=== PATIENT | male | born 1945 | race Caucasian/White ===

== ENCOUNTER 2025-07-16 09:34 | Emergency (ER) | payer BC, OTHER ==
[2025-07-16] MEDS ORDERED: NA CHLORIDE 0.9% 500 ML ONE (10:00)
[2025-07-16 10:20] LABS: Absolute Lymphocytes (CBC) 0.3 K/uL (0.7-4.9); Hematocrit 47.5 % (39.6-49.0); Hemoglobin 15.7 g/dL (13.6-17.9); MCH 29.9 pg (27.0-35.0); MCHC 33.1 g/dL (32.0-36.0); MCV 90.3 fL (80-100); MPV 9.5 fL (7.6-11.3); Nucleated RBC Absolute Count 0.0 (0-0); Nucleated Red Blood Cells % 0.1 % (0-0); RBC Red Blood Cell Count 5.26 M/uL (4.33-5.43); White Blood Count 12.40 thou/uL (4.3-10.9)
[2025-07-16 10:32] LABS: PT Prothrombin Time 12.8 SECONDS (10-13.0); Protime INR 1.14
[2025-07-16] MEDS ORDERED: ASPIRIN 81 MG CHEWABLE TABLET ONE (10:36)
[2025-07-16 10:37] LABS: Sqamous Epithelial None Seen /HPF (None Seen); Urine Culture Reflex Order NOT NEEDED; Urine Microscopic Reflex YN ORDER UMIC; Urine Yeast (Budding) Trace /HPF (None Seen)
[2025-07-16 10:53] LABS: ALT/SGPT 41.0 U/L (16-61); AST/SGOT 17.0 U/L (15-37); Albumin 3.4 g/dL (3.4-5.0); Albumin/Globulin Ratio 0.9 (1.1-1.8); Alkaline Phosphatase 98.0 U/L (45-117); Anion Gap 10.4 mEq/L (5.0-15.0); BUN Blood Urea Nitrogen 19.0 mg/dL (7-18); Bilirubin Indirect, Calculated 1.0 mg/dL (0.2-0.8); Globulin 3.8 g/dL (2.3-3.5); Glucose Level 152.0 mg/dL (74-106); Lipase 12.0 U/L (13-75); Magnesium 1.7 mg/dL (1.6-2.4); NT PRO-BNP 10281.0 pg/mL (<450); Potassium 4.4 mEq/L (3.5-5.1)
[2025-07-16 10:56] LABS: Troponin High Sensitivity 88.4 pg/mL (<58.9)
[2025-07-16] MEDS ORDERED: ENOXAPARIN 100 MG/ML SYR SQ ONE (11:08)
[2025-07-16] MEDS ORDERED: FAMOTIDINE 20 MG/2 ML VIAL IV ONE (11:08)
[2025-07-16] MEDS ORDERED: FUROSEMIDE 40 MG/4 ML VIAL ONE (11:08)
--- NOTE | 2025-07-16 11:09 | RAD REPORT ---
Procedure: Chest Single View HISTORY: Cough COMPARISON: none FINDINGS: The lungs appear clear of acute infiltrate.. Upper lobe vessels are prominent indicative of pulmonary venous hypertension. No significant pleural effusion noted. The heart is mildly enlarged.
--- NOTE | 2025-07-16 11:10 | ER ---
Nurse's Notes [facility] [place] Name: Dex Jones Age: 80 yrs Sex: Male : 1945 Arrival Date: 07/16/2025 Time: 09:34 Bed 2 Private MD: Diagnosis: Chronic combined systolic (congestive) and diastolic (congestive) heart failure;Non ST elevation [place];Dyspnea Presentation: 07/16 09:45 Chief complaint: Patient states: Reports he was sent from the [place] clinic with an kb3 abnormal EKG. Denies CP. States ongoing, intermittent SOB x1 year. Worse last night. Denies cough, congestion, fever. Denies extremity swelling. 09:45 Method Of Arrival: Ambulatory kb3 09:45 Coronavirus screen: Vaccine status: Patient reports receiving the 2nd dose of the covid kb3 vaccine. Client denies travel out of the [place] in the last 14 days. Ebola Screen: Patient negative for fever greater than or equal to 101.5 degrees Fahrenheit, and additional compatible Ebola Virus Disease symptoms Patient denies exposure to infectious person. Patient denies travel to an Ebola-affected area in the 21 days before illness onset. Initial Sepsis Screen: Does the patient meet any 2 criteria? No. Patient's initial sepsis screen is negative. Does the patient have a suspected source of infection? No. Patient's initial sepsis screen is negative. Risk Assessment: Do you want to hurt yourself or someone else? Patient reports no desire to harm self or others. Onset of symptoms is unknown. 09:45 Acuity: MI 2 kb3 Triage Assessment: 09:45 General: Appears in no apparent distress. comfortable, Behavior is calm, cooperative. kb3 09:45 Pain: Denies pain. Respiratory: Airway is patent Trachea midline Respiratory effort is kb3 even, unlabored, Respiratory pattern is regular, symmetrical, Breath sounds are clear Breath sounds are diminished bilaterally. Historical: - Allergies: 10:28 No Known Allergies; kb3 - Home Meds: 10:28 carvedilol oral 1 tab daily [Active]; losartan oral 1 tab daily [Active]; amlodipine kb3 oral 1 tab daily [Active]; - PMHx: 10:28 Hypertensive disorder; "heart valve problem"; kb3 - PSHx: 10:28 None; kb3 - Immunization history:: Adult Immunizations up to date, Client reports receiving the 2nd dose of the Covid vaccine. - Infectious Disease History:: Denies. - Social history:: Smoking status: Patient denies any tobacco usage or history of. - Family history:: not pertinent. Screenin:32 [facility] ED Fall Risk Assessment (Adult) History of falling in the last 3 months, kb3 including since admission No falls in past 3 months (0 pts) Confusion or Disorientation No (0 pts) Intoxicated or Sedated No (0 pts) Impaired Gait No (0 pts) Mobility Assist Device Used No (0 pt) Altered Elimination No (0 pt) Score/Fall Risk Level 0 - 2 = Low Risk Oriented to surroundings. Abuse screen: Denies threats or abuse. Denies injuries from another. Nutritional screening: No deficits noted. Tuberculosis screening: No symptoms or risk factors identified. Assessment: 10:32 Reassessment: Patient appears in no apparent distress at this time. No changes from kb3 previously documented assessment. Patient and/or family updated on plan of care and expected duration. Pain level reassessed. General: Appears in no apparent distress. Behavior is calm, cooperative. Pain: Denies pain. Neuro: Level of Consciousness is awake, alert, obeys commands, Oriented to person, place, time, situation, Wing Scorer are equal bilaterally Moves all extremities. Gait is steady, Speech is normal, Facial symmetry appears normal. Cardiovascular: Rhythm is sinus rhythm with PACs with unifocal PVCs. Respiratory: Reports shortness of breath at rest on exertion. 11:10 General: Pt resting comfortably. Updated regarding pending transfer to [place]. All kb3 questions asked/answered. . 11:10 Pain: Denies pain. kb3 11:18 Reassessment: Patient appears in no apparent distress at this time. No changes from kb3 previously documented assessment. Patient and/or family updated on plan of care and expected duration. Pain level reassessed. Patient is alert, oriented x 3, equal unlabored respirations, skin warm/dry/pink. Patient denies pain at this time. Cardiovascular: Rhythm is sinus rhythm. 12:43 Reassessment: No changes from previously documented assessment. Patient is alert, kb4 oriented x 3, equal unlabored respirations, skin warm/dry/pink. General: Pt standing to void without difficulty. . Vital Signs: 09:45 BP 149 / 96; Pulse 76; Resp 20; Temp 98; Pulse Ox 94% ; Weight 127.01 kg; Height 6 ft. kb3 3 in. ; Pain 0/10; 11:00 BP 156 / 111; Pulse 76; Resp 20; Pulse Ox 96% ; me1 12:00 BP 170 / 132; Pulse 90; Resp 19; Pulse Ox 94% ; me1 12:42 BP 159 / 121; Pulse 79; Resp 20; Pulse Ox 95% ; Pain 0/10; kb4 09:45 Body Mass Index 35.00 (127.01 kg, 190.5 cm) kb3 09:45 Pain Scale: Adult kb3 12:42 Pain Scale: Adult kb4 ED Course: 09:38 Patient arrived in ED. cj3 09:45 Arm band placed on right wrist. Patient placed in an exam room, on a stretcher. EKG kb3 completed in triage. Results shown to MD. EKG completed in triage. Results shown to MD. Antipyretics given from triage as ordered by an ER provider. 09:47 Anthony Magallanes MD is Attending Physician. [facility] 10:00 Pricila Delgadillo, AUTUMN is Primary Nurse. me1 10:05 Inserted saline lock: 20 gauge in right antecubital area, using aseptic technique. kb3 10:05 No provider procedures requiring assistance completed. kb3 10:13 Basic Metabolic Panel Sent. kb3 10:13 CBC with Diff Sent. kb3 10:13 LFT's Sent. kb3 10:13 Magnesium Sent. kb3 10:13 NT PRO-BNP Sent. kb3 10:13 PT-INR Sent. kb3 10:13 Troponin HS Sent. kb3 10:14 Patient has correct armband on for positive identification. Placed in gown. Bed in low kb3 position. Provided Education on: POC. 10:28 Triage completed. kb3 10:35 UA Rfx Godfrey Cult if indicated Sent. kb3 10:44 XRAY Chest (1 view) In Process Unspecified. EDMS 11:22 initiated a transfer with Neftali from the [place] transfer center. eb 11:57 connected the ED physician public administration professor for the [place] with Dr. Magallanes for patient transfer eb consultation. 11:59 administrative approval given by the [place] transfer center/ Dr. Gerald Wilkes has eb accepted the patient in transfer/ report to be called to [phone]. 12:42 Consent to transfer signed. All questions asked/answered. kb4 13:03 Patient transferred, IV remains in place. me1 Administered Medications: 10:58 Discontinued: ns 0.9% 500 ml 500 ml IV at 1 bolus once; to be given as a bolus over 30 panchito minutes 10:13 Drug: NS 0.9% IV 500 ml 500 ml IV at 1 bolus once; to be given as a bolus over 30 kb3 minutes Volume: 500 ml; Route: IV; Rate: 1 bolus; Site: right antecubital; 11:16 Follow up: IV Status: Order to discontinue infusion; IV Intake: 100ml kb3 10:35 Drug: Aspirin PO Chewable Tablet 81 mg PO once Route: PO; kb3 11:05 Follow up: Response: No adverse reaction kb3 11:15 Drug: Famotidine IVP 20 mg IVP once; dilute with 10 mL 0.9% NaCl; give over 2 minutes kb3 Route: IVP; Site: right antecubital; 11:16 Follow up: Response: No adverse reaction kb3 11:16 Drug: Furosemide IVP 40 mg IVP once; give over 2 minutes Route: IVP; Site: right kb3 antecubital; 11:17 Follow up: Response: No adverse reaction kb3 11:16 Drug: Enoxaparin Sub-Q 100 mg Sub-Q once Route: Sub-Q; Site: right lower abdomen; kb3 11:17 Follow up: Response: No adverse reaction kb3 12:51 Drug: Labetalol IV 20 mg IV at per protocol once over 2 mins Route: IV; Rate: per me1 protocol; Infused Over: 2 mins; Site: right antecubital; 13:04 Follow up: Response: No adverse reaction; IV Status: Completed infusion me1 12:51 Drug: Labetalol PO 100 mg PO once Route: PO; me1 13:04 Follow up: Response: No adverse reaction me1 Medication: 10:32 VIS not applicable for this client. kb3 Intake: 11:16 IV: 100ml; Total: 100ml. kb3 12:43 PO: 150ml; Total: 250ml. kb4 Output: 12:43 Urine: 2000ml (Voided); Total: 2000ml. kb4 Outcome: 11:10 ER care complete, transfer ordered by . [facility] 13:03 Transferred by ground EMS to [facility] Note: report called by me1 Daylin Hinton RN 13:03 Condition: stable 13:03 Instructed on the need for transfer, 13:04 Patient left the ED. me1 Signatures: Dispatcher [employer] EDAnthony Kebede MD MD cha Botello, Elizabeth eb Bradberry, Kelly, RN RN kb3 Pricila Delgadillo RN RN me1 Ira Montalvo RN RN kb4 Loretta Navarrete 3
--- NOTE | 2025-07-16 11:10 | EDPHYS ---
Physician Documentation [facility] Name: Dex Jones Age: 80 yrs Sex: Male : 1945 Arrival Date: 07/16/2025 Time: 09:34 Bed 2 Private MD: ED Physician Anthony Magallanes HPI: 07/16 11:04 This 80 yrs old Male presents to ER via Ambulatory with complaints of panchito Abnormal EKG. 11:04 The patient has shortness of breath at rest, with light activity, that woke him/her panchito from sleep. Onset: The symptoms/episode began/occurred 5 day(s) ago. Duration: The symptoms are continuous, and are steadily getting worse. The patient's shortness of breath is aggravated by exertion, supine position, is alleviated by rest, sitting up, application of supplemental oxygen. Associated signs and symptoms: Pertinent positives: non-productive cough. Severity of symptoms: At their worst the symptoms were mild this morning, in the emergency department the symptoms are unchanged. The patient has experienced similar episodes in the past, multiple times. Historical: - Allergies: 10:28 No Known Allergies; kb3 - Home Meds: 10:28 carvedilol oral 1 tab daily [Active]; losartan oral 1 tab daily [Active]; amlodipine kb3 oral 1 tab daily [Active]; - PMHx: 10:28 Hypertensive disorder; "heart valve problem"; kb3 - PSHx: 10:28 None; kb3 - Immunization history:: Adult Immunizations up to date, Client reports receiving the 2nd dose of the Covid vaccine. - Infectious Disease History:: Denies. - Social history:: Smoking status: Patient denies any tobacco usage or history of. - Family history:: not pertinent. ROS: 11:04 Constitutional: Negative for fever, chills, and weight loss, Eyes: Negative for injury, panchito pain, redness, and discharge, ENT: Negative for injury, pain, and discharge, Neck: Negative for injury, pain, and swelling, Cardiovascular: Negative for chest pain, palpitations, and edema, Abdomen/GI: Negative for abdominal pain, nausea, vomiting, diarrhea, and constipation, Back: Negative for injury and pain, : Negative for injury, bleeding, discharge, and swelling, MS/Extremity: Negative for injury and deformity, Skin: Negative for injury, rash, and discoloration, Neuro: Negative for headache, weakness, numbness, tingling, and seizure, Psych: Negative for depression, anxiety, suicide ideation, homicidal ideation, and hallucinations, Allergy/Immunology: Negative for hives, rash, and allergies, Endocrine: Negative for neck swelling, polydipsia, polyuria, polyphagia, and marked weight changes, Hematologic/Lymphatic: Negative for swollen nodes, abnormal bleeding, and unusual bruising, 11:04 Respiratory: Positive for cough, shortness of breath, on exertion. 11:04 MS/extremity: Negative for acute changes, Exam: 11:04 Constitutional: This is a well developed, well nourished patient who is awake, alert, panchito and in no acute distress. Head/Face: Normocephalic, atraumatic. Eyes: Pupils equal round and reactive to light, extra-ocular motions intact. Lids and lashes normal. Conjunctiva and sclera are non-icteric and not injected. Cornea within normal limits. Periorbital areas with no swelling, redness, or edema. ENT: Nares patent. No nasal discharge, no septal abnormalities noted. Tympanic membranes are normal and external auditory canals are clear. Oropharynx with no redness, swelling, or masses, exudates, or evidence of obstruction, uvula midline. Mucous membranes moist. Neck: Trachea midline, no thyromegaly or masses palpated, and no cervical lymphadenopathy. Supple, full range of motion without nuchal rigidity, or vertebral point tenderness. No Meningismus. Chest/axilla: Normal chest wall appearance and motion. Nontender with no deformity. No lesions are appreciated. Cardiovascular: Regular rate and rhythm with a normal S1 and S2. No gallops, murmurs, or rubs. Normal PMI, no JVD. No pulse deficits. Respiratory: Lungs have equal breath sounds bilaterally, clear to auscultation and percussion. No rales, rhonchi or wheezes noted. No increased work of breathing, no retractions or nasal flaring. Abdomen/GI: Soft, non-tender, with normal bowel sounds. No distension or tympany. No guarding or rebound. No evidence of tenderness throughout. Back: No spinal tenderness. No costovertebral tenderness. Full range of motion. Male : Normal genitalia with no discharge or lesions. Skin: Warm, dry with normal turgor. Normal color with no rashes, no lesions, and no evidence of cellulitis. MS/ Extremity: Pulses equal, no cyanosis. Neurovascular intact. Full, normal range of motion., bilateral aka Neuro: Awake and alert, GCS 15, oriented to person, place, time, and situation. Cranial nerves II-XII grossly intact. Motor strength 5/5 in all extremities. Sensory grossly intact. Cerebellar exam normal. Normal gait. Psych: Awake, alert, with orientation to person, place and time. Behavior, mood, and affect are within normal limits. 11:04 ECG was reviewed by the Attending Physician. 11:04 Musculoskeletal/extremity: DVT Exam: No signs of deep vein thrombosis. no pain, no swelling, no tenderness, negative Homans' sign noted on exam, no appreciated bluish discoloration, no erythema, no increased warmth, Vital Signs: 09:45 BP 149 / 96; Pulse 76; Resp 20; Temp 98; Pulse Ox 94% ; Weight 127.01 kg; Height 6 ft. kb3 3 in. ; Pain 0/10; 11:00 BP 156 / 111; Pulse 76; Resp 20; Pulse Ox 96% ; me1 12:00 BP 170 / 132; Pulse 90; Resp 19; Pulse Ox 94% ; me1 12:42 BP 159 / 121; Pulse 79; Resp 20; Pulse Ox 95% ; Pain 0/10; kb4 09:45 Body Mass Index 35.00 (127.01 kg, 190.5 cm) kb3 09:45 Pain Scale: Adult kb3 12:42 Pain Scale: Adult kb4 MDM: 09:47 Medical Screening Exam initiated panchito 11:07 Differential diagnosis: Anemia Anxiety Reaction asthma, Bronchitis CHF exacerbation, panchito Chronic Obstructive Pulmonary Disease Myocardial Infarction pneumonia, pulmonary edema, Pulmonary Embolism reactive airway disease, Sepsis Unstable Angina. Antibiotic administration: Not indicated. Immunization status: Pneumococcal vaccine: within last 5 years. Influenza vaccine: within last 5 years. Data reviewed: vital signs, nurses notes, lab test result(s), EKG, radiologic studies, plain films. Consideration of Admission/Observation Patient was admitted/placed on observation. Escalation of care including admission/observation considered. I considered the following discharge prescriptions or medication management in the emergency department Medications were administered in the Emergency Department. See MAR. Independent interpretation of the following test(s) in the Emergency Department EKG: See my EKG interpretation above. Test considered but Not performed: CT: NO CT CHEST. Historians other than the Patient: PT WELL INFORMED. Care significantly affected by the following chronic conditions: Hypertension, VALVE ISSUSES. 07/16 09:47 Order name: Basic Metabolic Panel; Complete Time: 10:57 panchito 07/16 09:47 Order name: CBC with Diff; Complete Time: 11:57 panchito 07/16 09:47 Order name: LFT's; Complete Time: 10:57 panchito 07/16 09:47 Order name: Magnesium; Complete Time: 10:57 panchito 07/16 09:47 Order name: NT PRO-BNP; Complete Time: 10:57 [facility] 07/16 09:47 Order name: PT-INR; Complete Time: 10:56 panchito 07/16 09:47 Order name: Troponin HS; Complete Time: 10:57 panchito 07/16 09:47 Order name: UA Rfx Godfrey Cult if indicated; Complete Time: 10:56 [facility] 07/16 09:47 Order name: Lipase; Complete Time: 10:57 [facility] 07/16 10:25 Order name: CBC Smear Scan; Complete Time: 11:57 EDMS 07/16 09:47 Order name: XRAY Chest (1 view); Complete Time: 11:57 [facility] 07/16 09:47 Order name: Cardiac monitoring; Complete Time: 10:13 [facility] 07/16 09:47 Order name: EKG - Nurse/Tech; Complete Time: 10:13 [facility] 07/16 09:47 Order name: IV Saline Lock; Complete Time: 10:13 [facility] 07/16 09:47 Order name: Labs collected and sent; Complete Time: 10:13 [facility] 07/16 09:47 Order name: O2 Per Protocol; Complete Time: 12:05 [facility] 07/16 09:47 Order name: O2 Sat Monitoring; Complete Time: 10:13 [facility] EC:04 Rate is 77 beats/min. Rhythm is regular. QRS [place] is Normal. [place] interval is normal. QRS panchito interval is normal. QT interval is normal. No Q waves. T waves are Normal. No ST changes noted. Clinical impression: NSR w/ Non-specific ST/T Changes and No evidence of ischemia. Interpreted by me. Reviewed by me. Administered Medications: 10:58 Discontinued: ns 0.9% 500 ml 500 ml IV at 1 bolus once; to be given as a bolus over 30 panchito minutes 10:13 Drug: NS 0.9% IV 500 ml 500 ml IV at 1 bolus once; to be given as a bolus over 30 kb3 minutes Volume: 500 ml; Route: IV; Rate: 1 bolus; Site: right antecubital; 11:16 Follow up: IV Status: Order to discontinue infusion; IV Intake: 100ml kb3 10:35 Drug: Aspirin PO Chewable Tablet 81 mg PO once Route: PO; kb3 11:05 Follow up: Response: No adverse reaction kb3 11:15 Drug: Famotidine IVP 20 mg IVP once; dilute with 10 mL 0.9% NaCl; give over 2 minutes kb3 Route: IVP; Site: right antecubital; 11:16 Follow up: Response: No adverse reaction kb3 11:16 Drug: Furosemide IVP 40 mg IVP once; give over 2 minutes Route: IVP; Site: right kb3 antecubital; 11:17 Follow up: Response: No adverse reaction kb3 11:16 Drug: Enoxaparin Sub-Q 100 mg Sub-Q once Route: Sub-Q; Site: right lower abdomen; kb3 11:17 Follow up: Response: No adverse reaction kb3 12:51 Drug: Labetalol IV 20 mg IV at per protocol once over 2 mins Route: IV; Rate: per me1 protocol; Infused Over: 2 mins; Site: right antecubital; 13:04 Follow up: Response: No adverse reaction; IV Status: Completed infusion me1 12:51 Drug: Labetalol PO 100 mg PO once Route: PO; me1 13:04 Follow up: Response: No adverse reaction me1 Disposition Summary: 07/16/25 11:10 Transfer Ordered Notes: Transfer [facility] panchito Reason: Higher level of care panchito Condition: Fair panchito Problem: new panchito Symptoms: have improved panchito Accepting Physician: TO DE(07/16/25 13:04) me1 Diagnosis - Chronic combined systolic (congestive) and diastolic (congestive) heart failure panchito - Non ST elevation [place] panchito - Dyspnea panchito Forms: - Medication Reconciliation Form panchito - SBAR form panchito Signatures: Dispatcher [employer] Anthony Escalona MD MD cha Bradberry, Kelly, RN RN kb3 Pricila Delgadillo RN RN me1 Corrections: (The following items were deleted from the chart) 09:48 09:48 BASIC METABOLIC PANEL+C.LAB.BRZ ordered. EDMS EDMS 09:48 09:48 CBC+H.LAB.BRZ ordered. EDMS EDMS 09:48 09:48 HEPATIC FUNCTION+C.LAB.BRZ ordered. EDMS EDMS 09:48 09:48 MAGNESIUM+C.LAB.BRZ ordered. EDMS EDMS 09:48 09:48 PROBNP+C.LAB.BRZ ordered. EDMS EDMS 09:48 09:48 PROTIME (+INR)+COAG.LAB.BRZ ordered. EDMS EDMS 09:48 09:48 Troponin High Sensitivity+C.LAB.BRZ ordered. EDMS EDMS 09:48 09:48 UA Rfx Godfrey Cult if indicated+U.LAB.BRZ ordered. EDMS EDMS 09:48 09:48 LIPASE+C.LAB.BRZ ordered. EDMS EDMS 09:48 09:48 Chest Single View+RAD.RAD.BRZ ordered. EDMS EDMS 13:04 11:10 TO DE panchito me1
[2025-07-16 11:33] LABS: Blood Morphology Comment NOT SEEN (NOT SEEN); White Blood Cell Scan OK (OK)
[2025-07-16] MEDS ORDERED: LABETALOL HCL 100 MG TAB ONE (12:47)
[2025-07-16] MEDS ORDERED: LABETALOL 20 MG/4ML SYRINGE IV ONE (12:47)
[2025-07-16 14:29] VITALS: TEMP 98
[2025-07-16 14:33] VITALS: BP 159/121; O2SAT 95
== END 2025-07-16 13:04 ==
LOC: ER 09:34
DX: I21.4 Non-ST elevation (NSTEMI) myocardial infarction (principal); I11.0 Hypertensive heart disease with heart failure; I50.42 Chronic combined systolic (congestive) and diastolic (congestive) heart failure; R06.00 Dyspnea, unspecified
CPT/HCPCS: 96361; 93005; 85025; 81001; 80048; 36415; 83735; 85610; 80076; 84484; 83690; 83880; 71045; 96375; 96372; 96374; 99285; J1650; J1938; J7040